=== PATIENT | male | born 1980 | race Two or more races ===

== ENCOUNTER 2018-06-29 18:49 | Inpatient (IN) | payer OTHER ==
[~2018-06-29] VITALS: Ht 185.4 cm; Wt 100.4 kg
[~2018-06-29 18:49] MED LIST: ABILIFY; DILANTIN; HYDROCHLOROTHIAZIDE
[2018-06-29 21:45] VITALS: Ht 185.4 cm; Wt 100.4 kg
[2018-06-29 22:00] VITALS: BP 145/81; PULSE 85; RESP 17
[2018-06-29] MEDS ORDERED: ONDANSETRON 4 MG INJ IV PRN (22:30)
[2018-06-29] MEDS ORDERED: LORAZEPAM 4 MG/ML VIAL IV PRN (22:30)
[2018-06-29] MEDS ORDERED: DOCUSATE SODIUM 100 MG CAP PO PRN (22:30)
[2018-06-29] MEDS ORDERED: NACL 0.9% 3 ML SYG IV SCH (22:30)
[2018-06-29] MEDS ORDERED: BISACODYL (EC) 5 MG TAB PO PRN (22:30)
[2018-06-29] MEDS ORDERED: ACETAMINOPHEN 325 MG TAB PO PRN (22:30)
--- NOTE | 2018-06-29 22:31 | HP ---
Date/Time of Note Date/Time of Note DATE: 06/29/18 TIME: 22:31 Assessment/Plan VTE Prophylaxis SCD applied (from Ns): Yes Pharmacological prophylaxis: NA/contraindicated Pharm contraindication: low risk/ambulating Assessment/Plan Hospital Course This is a 37-year-old male being admitted to the telemetry floor for: 1. Seizure disorder: Likely exacerbated by drug use. At the current time we will check a urine drug screen. Will resume Keppra 500 mg IV twice daily. Will check Depakote levels. PRN Ativan for any breakthrough seizures. We will need to restart home AEDs upon discharge. Consider neurology consultation. CT scan of the brain at the outside facility was negative for any acute abnormalities. Will check a urine drug screen. Fall precautions, seizure precautions. 2. Essential hypertension: We will need to confirm patient's home medications, monitor blood pressure closely 3. Schizophrenia.: Again we will need to confirm patient's home medications 4. Bipolar disorder.: We will need to confirm patient's mood stabilizers. He has a current time does not report any medications 5. Homelessness: Case management/social work consult DVT and GI prophylaxis:. SCDs, no GI prophylaxis indicated Further treatment strategy will be implemented as per the clinical course. HPI/ROS Admit Date/Time Admit Date/Time Jun 29, 2018 at 21:01 Hx of Present Illness cc: seizures This is a 37-year-old -Taiwanese male with past medical history of seizure disorder, hypertension, schizophrenia, bipolar disorder, and homelessness who was brought in via ambulance to outside hospital for a seizure. Patient was apparently staying at a sober living facility where patient was witnessed to have a seizure. Ambulance was called and patient was taken to an outside hospital emergency department. Patient had a CT scan of the head performed there which was negative for any acute abnormalities. Patient was given Keppra and Ativan at the facility and was subsequently transferred to [facility] secondary to insurance purposes. Patient currently at the bedside is easily arousable. He reports that he is unsure how admitted to the hospital. He reports that he has been off of his seizure medication as he ran out of the medications. He was previously on Keppra 500 mg twice daily and Dep akote. He denies any recent drug use however he drug screen apparently at the transfer facility was positive for cocaine. Pertinent laboratory findings from transfer facility: Please see chart for full details: CT scan of the head did not show any acute abnormalities. Allergies: NKDA Medications: Depakote, Keppra however currently not on them as he ran out ROS Const: As per HPI Eyes : No pain discharge or redness or change in visual acuity ENT: No pain, sore throat, congestion, congestion, dysphagia or discharge Respiratory: No shortness of breath, cough, sputum, wheezing, or pleuritic pain Cardiovascular: No chest pain, palpitation, PND, or edema GI : no change in appetite, abdominal pain, nausea, vomiting, diarrhea, constipation, or change in the color his stool Genitourinary: No dysuria, hematuria, flank pain , discharge or CVA tenderness Musculoskeletal: No joint pain, back pain, neck pain, restricted range of motion in neck or joints Skin: No rash, bruising or hives Neuro: As per HPI Endocrine: No polyuria, polydipsia, temperature intolerance Psych: No hallucination, depression, anxiety or suicidal ideation PMH/Family/Social Past Medical History 1. Seizure disorder. 2. Hypertension. 3. Schizophrenia. 4. Bipolar disorder Coded Allergies: No Known Allergy (Unverified , 06/14/11) Past Surgical History Past Surgical Hx: no surgical history Family History Significant Family History: no pertinent family hx Social History Smoking Status: Current some day smoker Drug Use: cocaine Exam/Review of Systems Vital Signs Vitals Temperature 98.1 Heart rate 85 respirations 17 BP 145/81 Exam Exam General: Patient is currently lying in bed in no acute distress, he does not recall what happened to him that led him to the hospital. He does know that someone told him he had a seizure. HEENT: Atraumatic, normocephalic. The pupils are equal, round and reactive. Extraocular motor are intact Neck: Supple with full range of motion. No rigidity or meningismus Chest: Nontender Lungs: Clear to auscultation bilaterally no crackles rales or wheezing Heart: Normal S1-S2, Regular rhythm and rate. No murmur, S3, or S4 Abdomen: Soft , nontender, nondistended , bowel sounds are present. No guarding no rebound tenderness , No masses or organomegaly. No costovertebral temporal angle mass Extremities: Normal to inspection, no edema no cyanosis Neurologic: Somnolent but easily arousable, a normal mental status, speech normal, cranial nerves II through XII are intact, motor and sensory are intact, CHICHI KOO Jun 29, 2018 22:31
[2018-06-29 23:03] VITALS: PULSE 75
[2018-06-29 23:40] VITALS: BP 131/81; PULSE 77; RESP 16
--- NOTE | 2018-06-29 23:45 | NUR ---
Pt K 3.2. Dr. Luna notified, new orders given.
[2018-06-30] VITALS (11 sets, daily range): BP systolic 130–158; BP diastolic 75–92; PULSE 67–86; RESP 15–20
[2018-06-30] MEDS: LEVETIRACETAM 500 MG (PMX) 100 ML IVPB SCH ×2 (00:19→09:39)
[2018-06-30] MEDS ORDERED: POTASSIUM CHLORIDE (SR) 20 MEQ TAB PO STA (00:34)
[2018-06-30] MEDS ORDERED: LEVETIRACETAM 500 MG (PMX) 100 ML IVPB SCH (06:00)
--- NOTE | 2018-06-30 07:55 | NUR ---
EOSS: Pt arrived as a direct admit from [facility]. Seizure precautions initiated, pt has not had a breakthrough seizure during shift. Aox3, unaware of what he's doing at the hospital. VS stable. Denies pain, sob. But the patient still appears groggy-poss still in postictal state. Rounded on hourly, bed in locked and low position, bed alarm green, bed rail x2, call light within reach; pt reminded to call when in need of assistance. Endorsed to Izaiah.
--- NOTE | 2018-06-30 10:29 | PN ---
Date/Time of Note Date/Time of Note DATE: 06/30/18 TIME: 10:20 Assessment/Plan VTE Prophylaxis SCD applied (from Nsg): Yes Pharmacological prophylaxis: NA/contraindicated Pharm contraindication: low risk/ambulating Lines/Catheters IV Catheter Type (from Nrsg): Peripheral IV Assessment/Plan Result Diagram: 06/30/18 0635 06/30/18 0635 Results 24hrs Laboratory Tests Test 06/29/18 22:47 06/30/18 06:35 White Blood Count 5.1 # 4.6 L Red Blood Count 4.04 L 3.84 L Hemoglobin 12.6 L 11.9 L Hematocrit 38.3 L 36.1 L Mean Corpuscular Volume 94.8 94.0 Mean Corpuscular Hemoglobin 31.2 31.0 Mean Corpuscular Hemoglobin Concent 32.9 33.0 Red Cell Distribution Width 12.9 13.1 Platelet Count 158 # 141 Mean Platelet Volume 11.3 H 11.2 H Immature Granulocytes % 0.200 0.200 Neutrophils % 48.2 39.0 Lymphocytes % 43.6 52.1 H Monocytes % 7.4 8.1 Eosinophils % 0.6 0.4 Basophils % 0.0 0.2 Nucleated Red Blood Cells % 0.0 0.0 Immature Granulocytes # 0.010 0.010 Neutrophils # 2.5 1.8 Lymphocytes # 2.2 2.4 Monocytes # 0.4 0.4 Eosinophils # 0.0 0.0 Basophils # 0.0 0.0 Nucleated Red Blood Cells # 0.0 0.0 Sodium Level 142 144 Potassium Level 3.2 L 3.7 Chloride Level 103 104 Carbon Dioxide Level 33 H 31 Anion Gap 6 9 Blood Urea Nitrogen 7 8 Creatinine 0.90 0.88 Est Glomerular Filtrat Rate mL/min > 60 > 60 Glucose Level 116 103 Calcium Level 8.7 8.7 Hemoglobin A1c 5.4 Total Bilirubin 0.0 L Direct Bilirubin 0.00 Indirect Bilirubin 0.0 Aspartate Amino Transf (AST/SGOT) 23 Alanine Aminotransferase (ALT/SGPT) 30 Alkaline Phosphatase 52 Total Protein 5.7 L Albumin 3.1 L Globulin 2.60 Albumin/Globulin Ratio 1.19 Thyroid Stimulating Hormone (TSH) 0.823 Digoxin Level < 0.4 L Valproic Acid (Depakene) Level < 10 L Subjective 24 Hr Interval Summary Free Text/Dictation subjective: no new issues, no further seizures so far, patient concerned that he has a period of time he cannot remember yesterday -states he's been off his meds for a while objective: General: A&O x3, answering questions appropriately, blank affect HEENT: NC/ AT. PERRL. EOM intact Neck: supple CVS: S1, S2, RRR. no murmurs. no pain on chest wall palpation Lungs: CTA b/l. no wheezing or rhonchi Abd: soft, nontender, +BS Ext: moving all extremities skin: no rashes assessment and plan: This is a 37-year-old male managed on the telemetry floor for: 1. Seizure disorder: Breakthrough seizure witnessed at sober living -Patient also with amnesia for a short period yesterday. -Likely exacerbated by drug use. Patient states that he used cocaine a few weeks ago; at the current time we will check a urine drug screen. -Resumed on Keppra PRN Ativan for any breakthrough seizures. We will need to restart home AEDs upon discharge. -Neurology consultation obtained, await recs. CT scan of the brain at the outside facility was negative for any acute abnormalities. -Urine drug screen pending. Fall precautions, seizure precautions. -consider MRI, defer to neurology 2. Essential hypertension: resume HCTZ, monitor blood pressure closely 3. Schizophrenia.: Again we will need to confirm patient's home medications and resume them, patient's pharmacy is [facility] in [facility], will request med list, 4. Bipolar disorder.: We will need to confirm patient's mood stabilizers. He has a current time does not report any medications 5. Social issues: Case management/social work consult, resides in sober living DVT and GI prophylaxis:. SCDs, no GI prophylaxis indicated Further treatment strategy will be implemented as per the clinical course. Exam/Review of Systems Vital Signs Vitals Vital Signs Date Temp Pulse Resp B/P (MAP) Pulse Ox O2 O2 Flow FiO2 Time Delivery Rate 06/30/18 67 08:31 06/30/18 98.0 16 158/92 99 07:31 (114) Medications Medications Current Medications IV Flush (NS 3 ml) 3 ml PER PROTOCOL IV ; Start 06/29/18 at 22:30 Lorazepam (Ativan) 1 mg Q4 PRN IV SEIZURES withdrawl symptoms; Start 06/29/18 at 22:30 Ondansetron HCl (Zofran Inj) 4 mg Q6H PRN IV NAUSEA AND/OR VOMITING; Start 06/29/18 at 22:30 Acetaminophen (Tylenol Tab) 650 mg Q6H PRN PO PAIN LEVEL 1-3 OR FEVER; Start 06/29/18 at 22:30 Docusate Sodium (Colace) 100 mg Q12H PRN PO CONSTIPATION; Start 06/29/18 at 22:30 Bisacodyl (Dulcolax) 5 mg DAILY PRN PO CONSTIPATION; Start 06/29/18 at 22:30 Levetiracetam 100 ml @ 400 mls/hr Q12 IVPB Last administered on 06/30/18at 09:39; Admin Dose 400 MLS/HR; Start 06/29/18 at 23:00 LAVON NOVA Jun 30, 2018 10:29
[2018-06-30] MEDS: HYDROCHLOROTHIAZIDE 25 MG TAB PO SCH (10:30)
--- NOTE | 2018-06-30 11:36 | QN ---
Documentation Comment Patient w/ reported Hx of epilepsy...presenting following a breakthrough seizure in the context of medication noncompliance (he "ran out").. OSH Head CT reportedly OK; EEG/MRI brain not presently indicated... Hold Keppra given multiple psychiatric comorbidities; Resume depakote monotherapy for now (iv load then tid ordered..).. Titrate to goal level 50-100. . ALANA FRITZ Jun 30, 2018 11:36
[2018-06-30] MEDS ORDERED: VALPROATE INJ 1,500 MG in SOD CHLORIDE 0.9% 100 ML IVPB ONE (12:30)
--- NOTE | 2018-06-30 12:30 | NUR ---
SW: CONSULTATION SW was consulted to meet with this patient to assess if he can return back to sober living. SW met with this 37-year-old Prydeinig speaking male at bedside. Patient states he lives at his friends sober living located at [address] [place] [address]. Stats he is disabled and receives SSI benefits for Paranoid Schizophrenia. States he sees a psychiatrist 1x a month, and a therapist 1x a week at [facility]. Patient states he takes psychotropic medications for his mental illness, and states it is managed adequately. Patient states he plans to return back to his sober living upon d/c, and requesting transportation assistance. Patient provided a phone number for Geronimo ([phone]) to call and confirm that he can return upon d/c to sober living. SW attempted to contact Ciaranbrianna several times, with no answer and no VMM option. [employer] will attempt again at a later time. Patient denies having an AHCD, and he verbally designated his mother Bina Gold ([phone]) as his surrogate medical spokesperson. Patient denies having any questions/ concerns at this time. SW remains available as needed throughout patient's treatment process.
--- NOTE | 2018-06-30 13:00 | NUR ---
Called [facility]( ) for Med List, no answer, unable to leave message/call back number. Will reattempt.
[2018-06-30] MEDS: DIVALPROEX (EC) 500 MG TAB PO SCH (20:15)
[2018-06-30] MEDS: DOCUSATE SODIUM 100 MG CAP PO SCH (23:24)
[2018-07-01] VITALS (12 sets, daily range): BP systolic 130–165; BP diastolic 76–100; PULSE 66–93; RESP 18–20
--- NOTE | 2018-07-01 06:28 | NUR ---
EOSS: Pt asleep in bed. VS stable. Denies pain, and SOB. No breakthrough seizures observed. Poss neuro consult today, SW is to follow up on pt's return to sober living in [place]-poss d/c today as well. Pt rounded on hourly, bed in locked and low position, bed alarm green, bed rail x2, call light within reach; pt reminded to call when in need of assistance. Will endorse to dayshift RN.
[2018-07-01] MEDS: HYDROCHLOROTHIAZIDE 25 MG TAB PO SCH (10:20)
[2018-07-01] MEDS: DIVALPROEX (EC) 500 MG TAB PO SCH ×3 (10:20→20:32)
--- NOTE | 2018-07-01 11:24 | NUR ---
SW: DRUGS & DC PLANNING SW met with pt at bedside again, after being informed that he tested positive for cocaine during this admission. Patient states that every 3-4 months he goes to [place] daily for about 3-4 days straight to use crack cocaine, and takes a train/ bus back to his sober living. States that he usually goes about 3-4 months of being sober. Patient declined any/ all resources, stating he can quit if he wants/ when he is ready. States that he is involved with [facility], and they provide drug treatment program as well. With patient's verbal consent, VAL also called and spoke with Geronimo ([phone]) from the [facility] to confirm patient's residency there. Moses states that patient does currently live at [facility] located at [address] [place] [address], and states he can return upon d/c. All other questions, concerns denied at this time. SW remains available as needed.
[2018-07-01] MEDS: DOCUSATE SODIUM 100 MG CAP PO SCH ×2 (13:30→22:02)
[2018-07-01] MEDS: LISINOPRIL 20 MG TAB PO SCH (13:30)
--- NOTE | 2018-07-01 14:48 | CONS ---
Assessment/Plan Assessment/Plan Hospital Course A: 37 yo M with reported Hx of epilepsy, who p/w following a breakthrough seizure... in the context of medication noncompliance. OSH CT was reportedly unrevealing. P: Resume Depakote 500 TID; titrate to goal 50-100 Ativan IV PRN seizures lasting greater than 5 min or for cluster Cont medical management per primary Will follow clinically Result Diagram: 07/01/18 0603 07/01/18 0603 Results 24hrs Laboratory Tests Test 07/01/18 06:03 White Blood Count 4.1 L Red Blood Count 3.92 L Hemoglobin 12.4 L Hematocrit 37.0 L Mean Corpuscular Volume 94.4 Mean Corpuscular Hemoglobin 31.6 Mean Corpuscular Hemoglobin Concent 33.5 Red Cell Distribution Width 12.8 Platelet Count 149 Mean Platelet Volume 10.8 H Immature Granulocytes % 0.200 Neutrophils % 42.1 Lymphocytes % 49.1 Monocytes % 8.1 Eosinophils % 0.5 Basophils % 0.0 Nucleated Red Blood Cells % 0.0 Immature Granulocytes # 0.010 Neutrophils # 1.7 Lymphocytes # 2.0 Monocytes # 0.3 Eosinophils # 0.0 Basophils # 0.0 Nucleated Red Blood Cells # 0.0 Sodium Level 142 Potassium Level 3.5 Chloride Level 103 Carbon Dioxide Level 30 Anion Gap 9 Blood Urea Nitrogen 9 Creatinine 0.84 Est Glomerular Filtrat Rate mL/min > 60 Glucose Level 123 Calcium Level 8.5 Magnesium Level 1.8 Valproic Acid (Depakene) Level 44 L Consultation Date/Type/Reason Admit Date/Time Jun 29, 2018 at 21:01 Type of Consult Neurology Reason for Consultation seizures Requesting Provider: LAVON NOVA Date/Time of Note DATE: 07/01/18 TIME: 14:48 Hx of Present Illness This is a 37 yo M with hx of seizure, schizophrenia, bipolar disorder, and other comorbidities who presented to the ED following a witnessed seizure episode. History was obtained from pt and chart review. It is additionally elsewhere noted: This is a 37-year-old -[place]aur[place] male with past medical history of seizure disorder, hypertension, schizophrenia, bipolar disorder, and homelessness who was brought in via ambulance to outside hospital for a seizure. Patient was apparently staying at a sober living facility where patient was witnessed to have a seizure. Ambulance was called and patient was taken to an outside hospital emergency department. Patient had a CT scan of the head performed there which was negative for any acute abnormalities. Patient was given Keppra and Ativan at the facility and was subsequently transferred to [facility] secondary to insurance purposes. Patient currently at the bedside is easily arousable. He reports that he is unsure how admitted to the hospital. He reports that he has been off of his seizure medication as he ran out of the medications. He was previously on Keppra 500 mg twice daily and De pakote. He denies any recent drug use however he drug screen apparently at the transfer facility was positive for cocaine. Pertinent laboratory findings from transfer facility: Please see chart for full details: CT scan of the head did not show any acute abnormalities. negative unless noted otherwise in HPI Exam/Review of Systems Vital Signs Vitals Vital Signs Date Temp Pulse Resp B/P (MAP) Pulse Ox O2 O2 Flow FiO2 Time Delivery Rate 07/01/18 93 12:00 07/01/18 98.5 18 159/100 100 Room Air 11:25 (119) Intake and Output 06/30/18 06/30/18 07/01/18 1515:00 23:00 07:00 IntakeIntake Total 1700 ml 1715 ml 1200 ml OutputOutput Total 1550 ml 2100 ml 3200 ml BalanceBalance 150 ml -385 ml -2000 ml Exam PE: Gen Appearance: No Apparent Distress HEENT: Normocephalic Cardiovascular: Regular rate Lungs: Clear bilaterally Abdomen: Soft Extremities: Dry NE: The patient was alert and fully oriented. Language was normal. Fund of knowledge was normal. Pupils were equal and reactive to light. There was no afferent pupillary defect. Visual johnson were normal. Funduscopic examination was limited. Extra-ocular movements were full. Ptosis was absent. There was no nystagmus. Facial sensation was normal. Face was symmetric with normal strength. Hearing was intact. Palate movements were normal. Neck strength was normal. There was normal tongue bulk and speed of movement. Tone was normal. Muscle bulk was normal. I did not see fasciculations. Arms and legs were strong. Vibration sensation was normal. Temperature and pinprick sensation was normal. Rapid alternating movements were normal. There was no dysmetria. There was no intention tremor. Gait was deferred due to bedrest. Arm and leg reflexes were 2+ and symmetric. King's sign was absent. Plantar responses were flexor. Medications Medications Current Medications IV Flush (NS 3 ml) 3 ml PER PROTOCOL IV ; Start 06/29/18 at 22:30 Lorazepam (Ativan) 1 mg Q4 PRN IV SEIZURES withdrawl symptoms; Start 06/29/18 at 22:30 Ondansetron HCl (Zofran Inj) 4 mg Q6H PRN IV NAUSEA AND/OR VOMITING; Start 06/29/18 at 22:30 Acetaminophen (Tylenol Tab) 650 mg Q6H PRN PO PAIN LEVEL 1-3 OR FEVER; Start 06/29/18 at 22:30 Bisacodyl (Dulcolax) 5 mg DAILY PRN PO CONSTIPATION; Start 06/29/18 at 22:30 Docusate Sodium (Colace) 100 mg Q12H PO Last administered on 07/01/18at 13:30; Admin Dose 100 MG; Start 06/30/18 at 22:30 Hydrochlorothiazide (Hydrochlorothiazide) 25 mg DAILY PO Last administered on 07/01/18at 10:20; Admin Dose 25 MG; Start 06/30/18 at 10:30 Divalproex Sodium (Depakote) 500 mg TID PO Last administered on 07/01/18at 13:30; Admin Dose 500 MG; Start 06/30/18 at 21:00 Lisinopril (Zestril) 20 mg DAILY PO Last administered on 07/01/18at 13:30; Admin Dose 20 MG; Start 07/01/18 at 11:00 Past Medical History reviewed Medications Current Medications IV Flush (NS 3 ml) 3 ml PER PROTOCOL IV ; Start 06/29/18 at 22:30 Lorazepam (Ativan) 1 mg Q4 PRN IV SEIZURES withdrawl symptoms; Start 06/29/18 at 22:30 Ondansetron HCl (Zofran Inj) 4 mg Q6H PRN IV NAUSEA AND/OR VOMITING; Start 06/29/18 at 22:30 Acetaminophen (Tylenol Tab) 650 mg Q6H PRN PO PAIN LEVEL 1-3 OR FEVER; Start 06/29/18 at 22:30 Bisacodyl (Dulcolax) 5 mg DAILY PRN PO CONSTIPATION; Start 06/29/18 at 22:30 Docusate Sodium (Colace) 100 mg Q12H PO Last administered on 07/01/18at 13:30; Admin Dose 100 MG; Start 06/30/18 at 22:30 Hydrochlorothiazide (Hydrochlorothiazide) 25 mg DAILY PO Last administered on 07/01/18at 10:20; Admin Dose 25 MG; Start 06/30/18 at 10:30 Divalproex Sodium (Depakote) 500 mg TID PO Last administered on 07/01/18at 13:30; Admin Dose 500 MG; Start 06/30/18 at 21:00 Lisinopril (Zestril) 20 mg DAILY PO Last administered on 07/01/18at 13:30; Admin Dose 20 MG; Start 07/01/18 at 11:00 Allergies: Coded Allergies: No Known Allergy (Unverified , 06/14/11) Past Surgical History reviewed Past Surgical Hx: no surgical history Social History reviewed Smoking Status: Current some day smoker Drug Use: CARRIE Vazquez NP Jul 01, 2018 14:48 ALANA FRITZ Jul 02, 2018 05:56
--- NOTE | 2018-07-01 16:07 | NUR ---
PT EVAL Therapy day number 1 Evaluation Start Time 15:20 Evaluation Total Time 0 min Subjective Denies pain Pain Scale NUMERIC Pain Intensity 0 (0-10) Patient Stated Goal for Pain Relief 0 (0-10) Pain Level Comment denies pain Pre Treatment Vital Signs Stable Yes - 132/76, 95%O2 sats on RA, 76bpm Supine to Sit Modified Independent Transfer Sit to Stand Ability Supervised Bed Mobility Sit to Supine Modified Independent Bed Transfer Ability Supervised Chair Transfer Ability Supervised Toileting Ability Modified Independent Sitting Tolerance 15 min Patient uses wheelchair Not Applicable Gait Assist Levels Stand by Assist Assistive Devices None Ambulation Distance 200 feet Additional Gait Comments fast monalisa, steady, reciprocal, stable Weight Bearing Assessment Label Bilat Lower Extremity Weight Bearing Status Weight Bearing as Chava Static Sitting Balance Good Dynamic Sitting Balance Good Standing Static Balance Good Dynamic Standing Balance Fair plus Additional Balance Assessments Comments without AD; assessed tandem balance, NBOS, single leg balance Safety Judgement Good Activity Tolerance Good Post Treatment Pain Intensity 0 0-10 Variance Documentation SEE PT EVAL PT Technical Record Comment PT EVAL Pt is a 37 yo M with PMH of seizure disorder, HTN, schizophrenia, biploar disorder, homelessness who experienced a seizure at a sober living facility from which pt was transported to an outside facility. CT of head obtained at this facility was negative for acute abnormalities. Pt transfered to [facility] for insurance purposes. Pt received in 5W, telemetry. Precautions: seizure precautions PLOF: Pt lives in back house of sober living facility with 2STE. Ambulatory without AD. CLOF: EKTA Bliss cleared pt for PT evaluation. Pt received in bed, vitals assessed and stable, agreeable to PT evaluation. Pt educated in purpose of PT evaluation. Bed mobility, transfer, balance and gait assessment as described above. Pt returned to bed, bed alarm activated, all needs in reach, no signs of distress. RN notified of pt's status. Recommendation: Pt demonstrates fast monalisa without AD, reciprocal, steady, and stable. Pt educated in slowing down for safety especially when on medications. No functional deficits noted at this time. Pt presents at prior level of function. No skilled PT services warranted at this time. Anticipating d/c back to sober living facility once cleared by . No anticipated DME needs P: PT EVAL ONLY
[2018-07-01] MEDS ORDERED: VALPROATE INJ 750 MG in SOD CHLORIDE 0.9% 50 ML IVPB ONE (16:30)
--- NOTE | 2018-07-01 17:04 | PN ---
Date/Time of Note Date/Time of Note DATE: 07/01/18 TIME: 17:01 Assessment/Plan VTE Prophylaxis Risk score (from Nsg)>0 risk: 1 SCD applied (from Nsg): Yes Pharmacological prophylaxis: NA/contraindicated Pharm contraindication: low risk/ambulating Lines/Catheters IV Catheter Type (from Nrs): Peripheral IV Assessment/Plan Result Diagram: 07/01/18 0603 07/01/18 0603 Results 24hrs Laboratory Tests Test 07/01/18 06:03 White Blood Count 4.1 L Red Blood Count 3.92 L Hemoglobin 12.4 L Hematocrit 37.0 L Mean Corpuscular Volume 94.4 Mean Corpuscular Hemoglobin 31.6 Mean Corpuscular Hemoglobin Concent 33.5 Red Cell Distribution Width 12.8 Platelet Count 149 Mean Platelet Volume 10.8 H Immature Granulocytes % 0.200 Neutrophils % 42.1 Lymphocytes % 49.1 Monocytes % 8.1 Eosinophils % 0.5 Basophils % 0.0 Nucleated Red Blood Cells % 0.0 Immature Granulocytes # 0.010 Neutrophils # 1.7 Lymphocytes # 2.0 Monocytes # 0.3 Eosinophils # 0.0 Basophils # 0.0 Nucleated Red Blood Cells # 0.0 Sodium Level 142 Potassium Level 3.5 Chloride Level 103 Carbon Dioxide Level 30 Anion Gap 9 Blood Urea Nitrogen 9 Creatinine 0.84 Est Glomerular Filtrat Rate mL/min > 60 Glucose Level 123 Calcium Level 8.5 Magnesium Level 1.8 Valproic Acid (Depakene) Level 44 L Subjective 24 Hr Interval Summary Free Text/Dictation subjective: no new issues, no further seizures so far objective: General: A&O x3, answering questions appropriately, blank affect HEENT: NC/ AT. PERRL. EOM intact Neck: supple CVS: S1, S2, RRR. no murmurs. no pain on chest wall palpation Lungs: CTA b/l. no wheezing or rhonchi Abd: soft, nontender, +BS Ext: moving all extremities skin: no rashes assessment and plan: This is a 37-year-old male managed on the telemetry floor for: 1. Seizure disorder: Breakthrough seizure witnessed at sober living -Patient also with amnesia for a short period yesterday. -Likely exacerbated by drug use. Patient states that he used cocaine a few weeks ago; at the current time we will check a urine drug screen. -Resumed on Keppra PRN Ativan for any breakthrough seizures. We will need to restart home AEDs upon discharge. -Neurology consultation obtained, await recs. CT scan of the brain at the outside facility was negative for any acute abnormalities. 2. Essential hypertension: continue HCTZ, monitor blood pressure closely 3. Schizophrenia.: Again we will need to confirm patient's home medications and resume them, patient's pharmacy is [facility] in [facility], will request med list, 4. Bipolar disorder.: We will need to confirm patient's mood stabilizers. He has a current time does not report any medications 5. Social issues / substance abuse: Case management/social work consult, resides in sober living DVT and GI prophylaxis:. SCDs, no GI prophylaxis indicated dispo: await pt review, d/c if cleared Exam/Review of Systems Vital Signs Vitals Vital Signs Date Temp Pulse Resp B/P (MAP) Pulse Ox O2 O2 Flow FiO2 Time Delivery Rate 07/01/18 84 16:00 07/01/18 98.5 18 134/76 96 Room Air 15:22 (95) Intake and Output 06/30/18 06/30/18 07/01/18 1515:00 23:00 07:00 IntakeIntake Total 1700 ml 1715 ml 1200 ml OutputOutput Total 1550 ml 2100 ml 3200 ml BalanceBalance 150 ml -385 ml -2000 ml Medications Medications Current Medications IV Flush (NS 3 ml) 3 ml PER PROTOCOL IV ; Start 06/29/18 at 22:30 Lorazepam (Ativan) 1 mg Q4 PRN IV SEIZURES withdrawl symptoms; Start 06/29/18 at 22:30 Ondansetron HCl (Zofran Inj) 4 mg Q6H PRN IV NAUSEA AND/OR VOMITING; Start 06/29/18 at 22:30 Acetaminophen (Tylenol Tab) 650 mg Q6H PRN PO PAIN LEVEL 1-3 OR FEVER; Start 06/29/18 at 22:30 Bisacodyl (Dulcolax) 5 mg DAILY PRN PO CONSTIPATION; Start 06/29/18 at 22:30 Docusate Sodium (Colace) 100 mg Q12H PO Last administered on 07/01/18at 13:30; Admin Dose 100 MG; Start 06/30/18 at 22:30 Hydrochlorothiazide (Hydrochlorothiazide) 25 mg DAILY PO Last administered on 07/01/18at 10:20; Admin Dose 25 MG; Start 06/30/18 at 10:30 Divalproex Sodium (Depakote) 500 mg TID PO Last administered on 07/01/18at 13:30; Admin Dose 500 MG; Start 06/30/18 at 21:00 Lisinopril (Zestril) 20 mg DAILY PO Last administered on 07/01/18at 13:30; Admin Dose 20 MG; Start 07/01/18 at 11:00 Valproate Sodium 750 mg/Sodium Chloride 57.5 ml @ 55 mls/hr ONCE ONCE IVPB ; Start 07/01/18 at 16:30; Stop 07/01/18 at 17:32 LAVON NOVA Jul 01, 2018 17:04
--- NOTE | 2018-07-01 20:45 | NUR ---
RN Notes Received report from EKTA Gonzalez.
--- NOTE | 2018-07-02 00:29 | NUR ---
RECIEVED TELEPHONE REPORT FROM INSPECTION AND TESTING SUPERVISOR, THEO PERSAUD.
--- NOTE | 2018-07-02 00:39 | NUR ---
RN Notes Patient transferred from room 506 to room 5564. Report given to EKTA Serna. Transporter bringing patient via bed. Tele monitor removed, all belongings kept with patient.
[2018-07-02 01:25] VITALS: BP 152/92; PULSE 77; RESP 18
[2018-07-02 02:00] VITALS: BP 149/75; PULSE 70; RESP 18
--- NOTE | 2018-07-02 03:33 | NUR ---
ARRIVAL ON UNIT/TRANSFER FROM [facility] Pt arrived on unit at 0045 via bed. Received report from Daphne Nevarez, brand leader. EKTA Horta was nurse for pt in [facility]. Pt arrived on floor in no apparent distress. Pt denies pain. BP high, in SBP 149. This is normal for pt. Pictures taken but printer not working. Will endorse to next shift. Pt oriented to environment. Seizure pads in place. Will continue to monitor.
--- NOTE | 2018-07-02 06:12 | NUR ---
EOSS Received pt at 0054. A&OX2. BP high. No due meds. Pt denies pain. Hourly rounding done. Bed left in lowest position with bed alarm on. Call light left within reach.
[2018-07-02] MEDS: LISINOPRIL 20 MG TAB PO SCH (09:16)
[2018-07-02] MEDS: DOCUSATE SODIUM 100 MG CAP PO SCH (09:16)
[2018-07-02] MEDS: HYDROCHLOROTHIAZIDE 25 MG TAB PO SCH (11:04)
[2018-07-02] MEDS: DIVALPROEX (EC) 500 MG TAB PO SCH ×2 (11:04→13:39)
[2018-07-02] MEDS ORDERED: HYDR25TA6 PO (12:15)
[2018-07-02] MEDS ORDERED: DIVA-16 PO (12:15)
[2018-07-02] MEDS ORDERED: LISI40TA3 PO (12:15)
--- NOTE | 2018-07-02 12:18 | PDOCDIS ---
Discharge Instructions DIAGNOSIS Discharge Diagnosis Breakthrough seizures secondary to drug use . CONDITION [id number] Patient Condition: [id number] Stable HOME CARE INSTRUCTIONS: Kafnk5Da Special Diet: Vnzjn5r Regular diet ACTIVITY: Tizps7Li Activity Restrictions: Wutta7i Slowly Increase Activity Rest between Activity FOLLOW UP/APPOINTMENTS Follow-up Plan 1. Followup with your primary doctor within the next 1-2 weeks. If you don't have one please let someone know, we can give you resources that may help you pick one. You may call Dr Alfredo Loya's office. he's accepting new patients Name, Degree: Alfredo Loya MD Specialty: Internal Medicine Comments: Office Address: [address] [place] [address] [place], [place] [id number] Office Office You may also call your insurance company to assign one to you. 2. Review your medication list with your nurse before leaving and if you need new prescriptions please let your nurse know. 3. I may have made changes to your home medications or given you new pre scriptions, please let your primary doctor know as well. 4. Stay compliant with your medications and report any side effects to your PCP or pharmacist. 5. Return to the ER if you have any concerns and cannot reach your doctors or call your insurance company, they usually have a nurse that can help you. OTHER ORDERS: Other Orders: Please stop smoking cocaine!!!!!. If you have already stopped, Good for you!!!. It is however an ongoing process. You have been given resources to help you with this, if you need more or you have questions, please let someone know before you leave. We are here to help you. LAVON NOVA Jul 02, 2018 12:18
--- NOTE | 2018-07-02 12:21 | DS ---
Date/Time of Note Date/Time of Note DATE: 07/02/18 TIME: 12:18 Discharge Summary Admission/Discharge Info Admit Date/Time Jun 29, 2018 at 21:01 Discharge Date/Time Discharge Diagnosis Breakthrough seizures secondary to drug use . Patient Condition: Stable Hospital Course 37-year-old male with a past medical history of chronic depression, hypertension, and seizure disorder, who was brought to us from the [facility] where he resides after he had had a weakness breakthrough seizures. Patient was altered on arrival and as such we could not really get a detailed history from him. When his mentation improved, the patient reported not remembering how he got from [facility] where he last remembered back to the sober living home. He did admit however that he had been abusing drugs. His drug of choice is cocaine. He was worked up and also got an MRI that did not show any acute abnormality. Neurology saw him and recommended resuming him on Depakote which he has tolerated very well. Had no further seizures throughout his hospitalization. Regarding his history of depression, the patient did admit that he has not taken medications for months. Including his antiseizure medicines as well as his antidepressants. Hence at this time the decision was made to hold off on resuming his medications as patient is likely to be no ncompliant with it and likely to be noncompliant with follow-up. He was advised in detail disease primary care doctor and stay compliant with his antiseizure medications and his high blood pressure medications. His primary care doctor can resume his antidepressants if necessary. Patient showed no evidence of depression at this time we will had no suicidal or homicidal thoughts. He has done very well, was seen by physical therapy, and has been cleared to return to the sober living facility where he resides. He has been evaluated by myself in detail today and is in stable condition for discharge. Again compliance was strongly reinforced, patient verbalized understanding. . Home Meds Active Scripts Divalproex Sodium* (Divalproex Sodium*) 500 Mg Tablet.dr, 500 MG PO TID, #90 TAB 2 Refills Prov:ROHINILAVON 07/02/18 Hydrochlorothiazide* (Hydrochlorothiazide*) 25 Mg Tab, 25 MG PO DAILY, #30 TAB 2 Refills Prov:LAVON NOVA 12/27/18 Lisinopril* (Lisinopril*) 40 Mg Tablet, 40 MG PO DAILY, #30 TAB 2 Refills Prov:ROHINILAVON 07/02/18 Reported Medications [Dilantin] No Conflict Check 06/14/11 [Hydrochlorothiazide] No Conflict Check 06/14/11 [Abilify] No Conflict Check 06/14/11 Follow-up Plan 1. Followup with your primary doctor within the next 1-2 weeks. If you don't have one please let someone know, we can give you resources that may help you pick one. You may call Dr Alfredo Loya's office. he's accepting new patients Name, Degree: Alfredo Loya MD Specialty: Internal Medicine Comments: Office Address: [address] [place] [address] Office Office You may also call your insurance company to assign one to you. 2. Review your medication list with your nurse before leaving and if you need new prescriptions please let your nurse know. 3. I may have made changes to your home medications or given you new prescriptions, please let your primary doctor know as well. 4. Stay compliant with your medications and report any side effects to your PCP or pharmacist. 5. Return to the ER if you have any concerns and cannot reach your doctors or call your insurance company, they usually have a nurse that can help you. Primary Care Provider Not On Staff Doctor Time spent on discharge: > 30 minutes LAVON NOVA Jul 02, 2018 12:21
--- NOTE | 2018-07-02 12:26 | PDOCDIS ---
Discharge Instructions DIAGNOSIS Discharge Diagnosis Breakthrough seizures secondary to drug use . CONDITION [id number] Patient Condition: Vclfk3c Stable HOME CARE INSTRUCTIONS: [id number] Special Diet: Sjhdl4k Regular diet ACTIVITY: [id number] Activity Restrictions: Tsqoa0z Slowly Increase Activity Rest between Activity FOLLOW UP/APPOINTMENTS Follow-up Plan 1. Followup with your primary doctor within the next 1-2 weeks. If you don't have one please let someone know, we can give you resources that may help you pick one. You may call Dr Alfredo Loya's office. he's accepting new patients Name, Degree: Alfredo Loya MD Specialty: Internal Medicine Comments: Office Address: [address] [place] [address] [place], [place] [phone] Office Office You may also call your insurance company to assign one to you. 2. Review your medication list with your nurse before leaving and if you need new prescriptions please let your nurse know. 3. I may have made changes to your home medications or given you new pre scriptions, please let your primary doctor know as well. 4. Stay compliant with your medications and report any side effects to your PCP or pharmacist. 5. Return to the ER if you have any concerns and cannot reach your doctors or call your insurance company, they usually have a nurse that can help you. OTHER ORDERS: Other Orders: Primary doctor needs to do a repeat Depakote level in about 1 week. LAVON NOVA Jul 02, 2018 12:26
[2018-07-02 14:00] VITALS: BP 160/91; PULSE 92; RESP 18
--- NOTE | 2018-07-02 14:12 | NUR ---
ANGELI NOTE: DISCHARGE PLANNING Order received for Safety Eval and Bedside medication delivery. Order for medication faxed to [facility] (P:[phone], F:[phone]),[facility] at [facility] (P:[phone], F:[phone]), and [facility] . Confirmation received. Naif Tyler RN CM [id number] Addendum: 07/02/18 at 1420 by BRITTANY TYLER CM [facility] who states that they will deliver medication today at 1700. EKTA Carrillo aware.
--- NOTE | 2018-07-02 14:44 | CONS ---
Assessment/Plan Assessment/Plan Assessment/Plan A: 37 yo M with reported Hx of epilepsy, who p/w following a breakthrough seizure... in the context of medication noncompliance. OSH CT was reportedly unrevealing. P: Continue Depakote 500 TID; titrate to goal 50-100 Ativan IV PRN seizures lasting greater than 5 min or for cluster Cont medical management per primary Will follow clinically Result Diagram: 07/01/18 0603 07/01/18 0603 Results 24hrs Laboratory Tests Test 07/02/18 11:09 Valproic Acid (Depakene) Level 56 Consultation Date/Type/Reason Admit Date/Time Jun 29, 2018 at 21:01 Type of Consult Neurology Reason for Consultation seizures Requesting Provider: LAVON NOVA Date/Time of Note DATE: 07/02/18 TIME: 14:44 24 HR Interval Summary Free Text/Dictation Continues medsurg monitoring. No acute events reported. Pt states that he's leaving today. Exam Vital Signs Vitals Vital Signs Date Temp Pulse Resp B/P (MAP) Pulse Ox O2 O2 Flow FiO2 Time Delivery Rate 07/02/18 98.6 92 18 160/91 100 Room Air 14:00 (114) Intake and Output 07/01/18 07/01/18 07/02/18 1515:00 23:00 07:00 IntakeIntake Total 1057.5 ml 500 ml OutputOutput Total 1400 ml 300 ml BalanceBalance -342.5 ml 200 ml Exam PE: Gen Appearance: No Apparent Distress HEENT: Normocephalic Cardiovascular: Regular rate Lungs: Clear bilaterally Abdomen: Soft Extremities: Dry NE: The patient was alert and fully oriented. Language was normal. Fund of knowledge was normal. Pupils were equal and reactive to light. There was no afferent pupillary defect. Visual johnson were normal. Funduscopic examination was limited. Extra-ocular movements were full. Ptosis was absent. There was no nystagmus. Facial sensation was normal. Face was symmetric with normal strength. Hearing was intact. Palate movements were normal. Neck strength was normal. There was normal tongue bulk and speed of movement. Tone was normal. Muscle bulk was normal. I did not see fasciculations. Arms and legs were strong. Vibration sensation was normal. Temperature and pinprick sensation was normal. Rapid alternating movements were normal. There was no dysmetria. There was no intention tremor. Gait was deferred due to bedrest. Arm and leg reflexes were 2+ and symmetric. King's sign was absent. Plantar responses were flexor. CARRIE CHILDS NP Jul 02, 2018 14:44 ALANA FRITZ Jul 03, 2018 06:21
--- NOTE | 2018-07-02 15:00 | NUR ---
DISCHARGE Pt alert and oriented, all due meds given as ordered. NO acute distress noted. Pt able to ambulate and effectively communicate needs. Pt did not want to wait until 5pm for his medications to be delivered. He wanted to smoke and make it on time for his AA meeting at 7pm. Pt was educated on the importance of having prescriptions medications in hand so all meds would be taken since pt is here for noncompliance. Discharge teaching done at bedside. Pt verbalized understanding. Pt stated he did not want to wait and wanted to parts picker the meds by his house. Efe bedolla was called in, pt safely discharged at 3pm. Addendum: 07/02/18 at 1526 by JUAN DIEGO ORO RN IV and ID band was removed at bedside, pt escorted to efe.
== END 2018-07-02 15:00 | disposition home health service (06) | DRG 897 ==
LOC: TEL 21:01 → 5EC 07-02 00:54
PROVIDERS: ADMIT Internal Medicine; ATTEND Internal Medicine
PROC: 3E0234Z Introduction of Serum, Toxoid and Vaccine into Muscle, Percutaneous Approach (ICD-10-PCS; principal; 2018-06-30)
DX: F14.188 Cocaine abuse with other cocaine-induced disorder (principal); G40.909 Epilepsy, unspecified, not intractable, without status epilepticus; I10 Essential (primary) hypertension; F31.9 Bipolar disorder, unspecified; F20.9 Schizophrenia, unspecified; Z59.0 Homelessness; F17.200 Nicotine dependence, unspecified, uncomplicated; Z91.14 Patient's other noncompliance with medication regimen; Z23 Encounter for immunization
CPT/HCPCS: 80048; 80053; 80162; 80164; 80185; 80307; 83036; 83735; 84443; 85025; 90686; 97161; J1953

== ENCOUNTER 2018-10-06 15:11 | Inpatient (IN) | payer OTHER ==
[~2018-10-06] VITALS: Ht 185.4 cm; Wt 96.8 kg
[~2018-10-06 15:11] MED LIST changes: -ABILIFY; -DILANTIN; +DIVA-16 PO; +HYDR25TA6 PO; -HYDROCHLOROTHIAZIDE; +LISI40TA3 PO
[2018-10-06 15:54] VITALS: BP 135/87; PULSE 85; RESP 18
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
[2018-10-06 17:00] VITALS: Ht 185.4 cm; Wt 96.8 kg
[2018-10-06] MEDS ORDERED: ONDANSETRON 4 MG INJ IV PRN (17:00)
[2018-10-06] MEDS ORDERED: NACL 0.9% 3 ML SYG IV SCH (17:00)
[2018-10-06] MEDS ORDERED: ACETAMINOPHEN 325 MG TAB PO PRN (17:00)
[2018-10-06 19:41] VITALS: BP 153/82; PULSE 88; RESP 18
[2018-10-06] MEDS: LEVETIRACETAM 500 MG TAB PO SCH (21:20)
[2018-10-06] MEDS: DIVALPROEX (EC) 500 MG TAB PO SCH (21:20)
[2018-10-07] MEDS: SOD CHLORIDE 0.9% 1,000 ML IV SCH ×3 (01:23→20:23)
[2018-10-07 08:00] VITALS: BP 154/89; PULSE 67; RESP 18
[2018-10-07] MEDS ORDERED: HYDROCHLOROTHIAZIDE 25 MG TAB PO SCH (09:00)
[2018-10-07] MEDS ORDERED: LISINOPRIL 20 MG TAB PO SCH (09:00)
[2018-10-07] MEDS: LEVETIRACETAM 500 MG TAB PO SCH ×2 (09:44→20:22)
[2018-10-07] MEDS: DIVALPROEX (EC) 500 MG TAB PO SCH ×2 (09:44→13:00)
[2018-10-07 14:00] VITALS: BP 143/79; PULSE 81; RESP 16
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
[2018-10-07] MEDS: QUETIAPINE 100 MG TAB PO SCH (20:22)
[2018-10-07 20:30] VITALS: BP 162/98; PULSE 82; RESP 18
[2018-10-07] MEDS ORDERED: DIVALPROEX (EC) 500 MG TAB PO SCH (21:00)
[2018-10-07 23:13] VITALS: BP 122/80
[2018-10-08] VITALS (7 sets, daily range): BP systolic 119–181; BP diastolic 71–105; PULSE 69–81; RESP 18–19
[2018-10-08] MEDS: SOD CHLORIDE 0.9% 1,000 ML IV SCH ×4 (02:52→22:05)
[2018-10-08] MEDS ORDERED: hydrALAzine 20 MG INJ IV PRN (04:30)
[2018-10-08] MEDS: LEVETIRACETAM 500 MG TAB PO SCH ×2 (12:39→20:43)
--- NOTE | 2018-10-08 15:07 | PN ---
Date/Time of Note Date/Time of Note DATE: 10/08/18 TIME: 15:07 Assessment/Plan VTE Prophylaxis Risk score (from Ns)>0 risk: 0 SCD applied (from Nsg): Yes Pharmacological prophylaxis: heparin Lines/Catheters IV Catheter Type (from Nrs): Peripheral IV Assessment/Plan Hospital Course 38 yo male with acute encephelopahty 2/2 drug use, now resolving - Mental status resolving - CK trending down - Supportive care - likely dc tomorrow Result Diagram: 10/07/18 0506 10/08/18 0631 Results 24hrs Laboratory Tests Test 10/08/18 06:31 Sodium Level 142 Potassium Level 4.1 Chloride Level 106 Carbon Dioxide Level 28 Anion Gap 8 Blood Urea Nitrogen 13 Creatinine 0.79 Est Glomerular Filtrat Rate mL/min > 60 Glucose Level 92 Calcium Level 8.8 Subjective 24 Hr Interval Summary Free Text/Dictation Mentation improved, now apparently back to baseline Wants to stay another day Exam/Review of Systems Exam Vitals Vital Signs Date Temp Pulse Resp B/P (MAP) Pulse Ox O2 O2 Flow FiO2 Time Delivery Rate 10/08/18 98.0 69 18 153/87 96 Room Air 14:00 (109) Intake and Output 10/07/18 10/07/18 10/08/18 1515:00 23:00 07:00 IntakeIntake Total 1900 ml 750 ml 1350 ml OutputOutput Total 3600 ml 600 ml 1500 ml BalanceBalance -1700 ml 150 ml -150 ml Constitutional: alert, oriented, well developed Psych: no complaints, nl mood/affect Head: normocephalic, atraumatic Eyes: nl conjunctiva, EOMI, nl lids, nl sclera, PERRL ENMT: nl external ears & nose, nl lips & teeth, nl nasal mucosa & septum Neck: supple, non-tender Respiratory: clear to auscultation, normal air movement Cardiovascular: regular rate and rhythm, nl pulses Gastrointestinal: soft, nl liver, spleen, non-tender Musculoskeletal: nl extremities to inspection, nl gait and stance Extremities: normal pulses Neurological: [employer] II-XII intact, nl mental status, nl speech, nl strength Skin: nl turgor; No rash or lesions Lymph: nl lymph nodes Results Results 24hrs Laboratory Tests Test 10/08/18 06:31 Sodium Level 142 Potassium Level 4.1 Chloride Level 106 Carbon Dioxide Level 28 Anion Gap 8 Blood Urea Nitrogen 13 Creatinine 0.79 Est Glomerular Filtrat Rate mL/min > 60 Glucose Level 92 Calcium Level 8.8 Medications Medication Current Medications IV Flush (NS 3 ml) 3 ml PER PROTOCOL IV ; Start 10/06/18 at 17:00 Ondansetron HCl (Zofran Inj) 4 mg Q6H PRN IV NAUSEA/VOMITING; Start 10/06/18 at 17:00 Acetaminophen (Tylenol Tab) 650 mg Q6H PRN PO .PAIN 1-3 OR TEMP; Start 10/06/18 at 17:00 Levetiracetam (Keppra) 500 mg BID PO Last administered on 10/08/18at 12:39; Admin Dose 500 MG; Start 10/06/18 at 21:00 Sodium Chloride 1,000 ml @ 100 mls/hr Q10H IV Last administered on 10/08/18at 12:39; Admin Dose 100 MLS/HR; Start 10/07/18 at 01:00 Quetiapine Fumarate (Seroquel) 200 mg QHS PO Last administered on 10/07/18at 20:22; Admin Dose 200 MG; Start 10/07/18 at 21:00 Hydralazine HCl (Apresoline) 10 mg Q4H PRN IV SBP >170; Start 10/08/18 at 04:30 KARRIE BRADEN MD Oct 08, 2018 15:07
[2018-10-08] MEDS: QUETIAPINE 100 MG TAB PO SCH (20:43)
[2018-10-09 02:00] VITALS: BP 146/93; PULSE 75; RESP 17
[2018-10-09 08:00] VITALS: BP 169/102; PULSE 75
[2018-10-09] MEDS: LEVETIRACETAM 500 MG TAB PO SCH (08:28)
--- NOTE | 2018-10-09 12:20 | DS ---
Date/Time of Note Date/Time of Note DATE: 10/09/18 TIME: 12:19 Discharge Summary Admission/Discharge Info Admit Date/Time Oct 06, 2018 at 15:29 Discharge Date/Time Oct 09, 2018 at 09:00 Discharge Diagnosis Acute encephelopathy Patient Condition: Stable Hospital Course 38 yo male with acute encephelopahty 2/2 drug use He was monitored and his mental status resolved to baseline He was treated with IV NS for mild rhabdo Discharged to self longterm Meds Active Scripts Divalproex Sodium* (Divalproex Sodium*) 500 Mg Tablet.dr, 500 MG PO TID, #90 TAB 2 Refills Prov:LAVON NOVA 07/02/18 Hydrochlorothiazide* (Hydrochlorothiazide*) 25 Mg Tab, 25 MG PO DAILY, #30 TAB 2 Refills Prov:LAVON NOVA 07/02/18 Lisinopril* (Lisinopril*) 40 Mg Tablet, 40 MG PO DAILY, #30 TAB 2 Refills Prov:LAVON NOVA 07/02/18 Primary Care Provider Not On Staff Doctor KARRIE BRADEN MD Oct 09, 2018 12:20
== END 2018-10-09 09:00 | disposition home or self-care (01) | DRG 92 ==
LOC: EDSTATUS 15:11 → 5EC 15:29
PROVIDERS: ADMIT Internal Medicine; ATTEND Internal Medicine
DX: G92 Toxic encephalopathy (principal); M62.82 Rhabdomyolysis; G40.909 Epilepsy, unspecified, not intractable, without status epilepticus; T40.5X5A Adverse effect of cocaine, initial encounter; T43.625A Adverse effect of amphetamines, initial encounter
CPT/HCPCS: 80048; 80053; 82550; 83036; 83735; 84100; 84443; 85025; J0360; J7030